=== PATIENT | male | born 1945 | race Caucasian/White ===

== ENCOUNTER 2017-06-23 05:44 | Day surgery (SDC) | payer MEDICARE, OTHER ==
[2017-06-22 10:58] VITALS: Ht 167.6 cm; Wt 75.9 kg
[~2017-06-23] VITALS: Ht 167.6 cm; Wt 75.9 kg
[2017-06-23] VITALS (14 sets, daily range): BP systolic 99–150; BP diastolic 66–98; PULSE 58–76; RESP 15–18
[2017-06-23 06:40] LABS: BASOPHILS % 0.4 % (0.0-2.0); EOSINOPHILS # 0.2 10^3/ul (0.0-0.5); EOSINOPHILS % 2.6 % (0.0-7.0); HEMATOCRIT 49.3 % (42.0-52.0); HEMOGLOBIN 16.3 g/dl (14.0-18.0); LYMPHOCYTES # 2.1 10^3/ul (0.8-2.9); LYMPHOCYTES % 27.2 % (15.0-51.0); MEAN CORPUSCULAR HEMOGLOBIN 30.4 pg (29.0-33.0); MEAN CORPUSCULAR HGB CONC 33.1 g/dl (32.0-37.0); MEAN CORPUSCULAR VOLUME 91.8 fl (82.0-101.0); MEAN PLATELET VOLUME 9.4 fl (7.4-10.4); MONOCYTE # 0.8 10^3/ul (0.3-0.9); MONOCYTES % 9.6 % (0.0-11.0); NEUTROPHIL # 4.7 10^3/ul (1.6-7.5); NEUTROPHILS % 59.9 % (39.0-77.0); PLATELET COUNT 288 10^3/UL (140-415); RED BLOOD COUNT 5.37 10^6/ul (4.70-6.10); RED CELL DISTRIBUTION WIDTH 14.1 % (11.5-14.5); WHITE BLOOD COUNT 7.8 10^3/ul (4.8-10.8)
[2017-06-23 07:02] LABS: INR 1.08; PT RATIO 1.1
[2017-06-23 07:03] LABS: PARTIAL THROMBOPLASTIN TIME 30.4 Sec (25.0-35.0)
[2017-06-23] MEDS ORDERED: CARV25TA79 PO (07:09)
[2017-06-23] MEDS ORDERED: APIX5TAB PO (07:09)
[2017-06-23] MEDS ORDERED: SPIR25TA PO (07:09)
[2017-06-23] MEDS ORDERED: DIGO125T PO (07:09)
[2017-06-23] MEDS ORDERED: ATOR40TA68 PO (07:09)
[2017-06-23 07:20] LABS: CALCIUM 9.4 mg/dl (8.4-10.2); CREATININE 0.83 mg/dl (0.61-1.24); POTASSIUM 4.3 mmol/L (3.5-5.1)
[2017-06-23] MEDS ORDERED: LIDOCAINE 2% (SDV) 5 ML INJ ONE (07:34)
[2017-06-23] MEDS ORDERED: PROPOFOL 40 ML ONE (07:34)
[2017-06-23] MEDS ORDERED: SOD CHLORIDE 0.9% 1,000 ML ONE (07:50)
--- NOTE | 2017-06-23 08:07 | SIPON ---
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
--- NOTE | 2017-06-23 09:44 | CARRPT ---
DATE OF PROCEDURE: 06/23/2017 TYPE OF PROCEDURE: 1. Transesophageal echo. 2. Synchronized cardioversion. PATIENT IDENTIFICATION DATA: This is a very pleasant 72-year-old male gentleman with evidence of atrial fibrillation and evidence of congestive heart failure, who was therefore electively taken to the cardiac catheterization laboratory for the purpose of cardioversion. This was proceeded by a transesophageal echocardiogram for the purpose to rule out the presence of clot in the left atrial appendage. PROCEDURE: The patient was informed about risks and benefits of this procedure, which include, but are not limited to esophageal injury, emergent surgery, blood loss, failure of procedure, recurrence of arrhythmia, CPR, intubation, , stroke. The patient fully understands and agrees and wishes to proceed. The patient was taken to the cardiac catheterization laboratory. He was in the prep and hold area. Monitoring was attached including oxygen saturation, blood pressure and heart rate. A board certified anesthesiologist was present throughout the entire procedure including prior to the procedure, during induction of deep sedation, throughout the procedure and during the entire period of recovery. Anesthesia was initiated utilizing propofol (see anesthesia protocol). Subsequently, 5 MHz transesophageal probe was inserted into the mid esophageal region and 2 dimensional and color Doppler echocardiographic imaging studies, as well as 3 dimensional echocardiographic imaging studies were obtained. Subsequently, after clot was ruled out, a synchronized cardioversion was performed at 120 joules, converting the patient immediately from atrial fibrillation into sinus rhythm. There was no evidence of CVA or any other complications. The patient was transported awake to the postsurgical area. All findings were explained to the patient and patient's family. FINDINGS: 1. Left ventricle: There is a normal-size left ventricle without obvious regional wall motion abnormalities and an ejection fraction of 50 percent. 2. Left atrium: The left atrium is moderately enlarged. 3. Right atrium: The right atrium is normal in size. 4. Right ventricle: The right ventricle is normal in size with normal function. 5. Mitral valve: The mitral valve reveals mild sclerosis with mild regurgitation. 6. Aortic valve: The aortic valve is normal. 7. Tricuspid valve: The tricuspid valve reveals mild regurgitation. 8. Pulmonary valve: The pulmonary valve is normal. 9. Ascending aorta: The ascending aorta is normal in size. 10. Pulmonary artery: The pulmonary artery is normal in size. 11. Descending thoracic aorta: The descending thoracic aorta and the aortic arch reveal plaque, which is not protruding and is normal in size. 12. Left atrial appendage: The left atrial appendage is normal in size without evidence of clot. The velocity is about 25 mm/sec. 13. Interatrial septum: There is no evidence of shunt at the interatrial level. CONCLUSION: 1. There is a normal-size left ventricle without apparent regional wall motion abnormalities and estimated ejection fraction of 50 percent. 2. Mild mitral valve regurgitation. 3. Mild atherosclerotic plaque of the descending aorta and the aortic arch. 4. Mild tricuspid valve regurgitation. 5. No evidence of clot in the left atrial appendage or the left atrium. 6. Successful cardioversion with synchronized cardioversion at 120 joules from atrial fibrillation into sinus rhythm. 7. All findings were conferred to the patient and the patient's family. Dictated By: Parker Melgar MD /nita/emma /Document#: [id number]
--- NOTE | 2017-06-23 14:13 | RADRPT ---
Vent Rate: 61 bpm RR Interval: 0 msec MI Interval: 162 msec QRS Duration: 78 msec QT Interval: 434 msec QTC Interval: 436 msec P-R-T Auberry: 65 - 52 - 46 degrees Normal sinus rhythm Normal ECG Electronically Signed By: Darren Mtz [id number]
--- NOTE | 2017-06-23 14:13 | RADRPT ---
Vent Rate: 78 bpm RR Interval: 0 msec RI Interval: 0 msec QRS Duration: 78 msec QT Interval: 380 msec QTC Interval: 433 msec P-R-T Turner: 0 - 54 - 44 degrees Atrial fibrillation Septal infarct , age undetermined Abnormal ECG Electronically Signed By: Darren Mtz [id number]
== END 2017-06-23 10:10 | disposition home or self-care (01) ==
LOC: SDS 05:44 → CCL 05:44 → SDS 10:10
PROVIDERS: ATTEND Internal Medicine Cardiovascular Disease
DX: I48.91 Unspecified atrial fibrillation (principal); I50.9 Heart failure, unspecified; I34.0 Nonrheumatic mitral (valve) insufficiency; I07.1 Rheumatic tricuspid insufficiency; I70.0 Atherosclerosis of aorta
CPT/HCPCS: 80048; 85025; 85610; 85730; 92960; 93005; 93312; 93320; 93325; J7040